=== PATIENT | female | born 1980 | race Caucasian/White ===

== ENCOUNTER 2016-09-13 04:21 | Emergency (ER) | payer OTHER | END 2016-09-13 06:05 | disposition left against medical advice (07) | LOC: M ED 04:21 | DX: Z53.29 Procedure and treatment not carried out because of patient's decision for other reasons (principal) ==

== ENCOUNTER → 2017-01-06 | Outpatient (REF) | payer OTHER ==
[2017-01-06 16:09] LABS: BASO % 0.3 % (0.0-1.0); EOS % 0.9 % (0.0-3.0); LARGE UNSTAINED CELL # 0.1 K/mm3 (0.0-0.4); LARGE UNSTAINED CELL % 1.3 % (0.0-4.0); LYMPH # 1.8 K/mm3 (1.5-4.5); MEAN CORPUSCULAR HEMOGLOBIN 30.8 pg (27.0-33.0); MEAN CORPUSCULAR HGB CONC 33.1 g/dl (32.0-36.5); MONO # 0.3 K/mm3 (0.0-0.8); MONO % 5.6 % (0.0-5.0); NEUTROPHILS # 3.4 K/mm3 (1.8-7.7); NEUTROPHILS % 60.9 % (36.0-66.0); PLATELET COUNT, AUTOMATED 307 k/mm3 (150-450); RED CELL DISTRIBUTION WIDTH 12.9 % (11.5-14.5); WHITE BLOOD COUNT 5.6 K/mm3 (4.0-10.0)
[2017-01-06 16:28] LABS: ALBUMIN 3.8 GM/DL (3.2-5.2); ALBUMIN/GLOBULIN RATIO 0.97 (1.00-1.93); ALKALINE PHOSPHATASE 59 U/L (45-117); ALT/SGPT 23 U/L (12-78); ANION GAP 7 MEQ/L (8-16); AST/SGOT 13 U/L (15-37); BILIRUBIN,TOTAL 0.3 MG/DL (0.2-1.0); BLOOD UREA NITROGEN 15 MG/DL (7-18); CALCIUM LEVEL 9.2 MG/DL (8.5-10.1); CARBON DIOXIDE LEVEL 27 MEQ/L (21-32); CHLORIDE LEVEL 105 MEQ/L (98-107); GLOMERULAR FILTRATION RATE > 60.0 (>60); GLUCOSE, FASTING 94 MG/DL (70-105); POTASSIUM SERUM 4.2 MEQ/L (3.5-5.1); SODIUM LEVEL 139 MEQ/L (136-145); TOTAL PROTEIN 7.7 GM/DL (6.4-8.2)
== END ==
LOC: M LABDRAW1 15:42
PROVIDERS: ATTEND Family Medicine
DX: R53.83 Other fatigue (principal)

== ENCOUNTER → 2017-01-08 | Outpatient (CLI) | payer OTHER ==
--- NOTE | 2017-01-09 02:52 | REP ---
Clinical: Acute abdominal pain. Technique: Strickland scale ultrasound using curved array transducer. Findings: The liver, spleen, and pancreas are normal in contour, size, and echogenicity without focal hepatic, splenic or pancreatic lesions identified. The gallbladder is normal without gallstones, wall thickening or pericholecystic fluid. No biliary ductal dilatation is appreciated, and the common bile duct measures 3.9 mm diameter. The bilateral kidneys are normal in reniform shape without hydronephrosis, cystic or renal mass lesion. Right kidney measures 11.9 x 5.0 x 4.0 cm and a 4 mm nonobstructing calculus cannot be excluded. Left kidney measures 11.8 x 4.7 x 4.4 cm and a 6 mm nonobstructing calculus cannot be excluded. No ascites. Visualized portions of the abdominal aorta normal. Impression: Essentially normal complete abdominal ultrasound. Small nonobstructing renal calculi cannot be excluded. Signed by Hussein Goff MD 01/09/2017 02:45 A
== END ==
LOC: M WHC 09:11
PROVIDERS: ATTEND Family Medicine
DX: R10.84 Generalized abdominal pain (principal)

== ENCOUNTER → 2017-02-12 | Outpatient (CLI) | payer OTHER ==
[~2017-02-12] VITALS: Ht 175.3 cm; Wt 81.6 kg
[~2017-02-12] MED LIST: LIDOCAINE 2% INJ 100 MG/5 ML SDV (FOR ANES.) As Ordered ONE; NS 1,000 ML IV SCH; PROPOFOL 200 MG/20 ML VIAL As Ordered ONE; fentaNYL 100 MCG/2 ML INJECTION (J3010) As Ordered ONE
--- NOTE | 2017-02-12 13:22 | ROOR ---
Patient Name: Enedina Castillo Procedure Date: 02/12/2017 1:01 PM Date of : 1980 Age: 37 Room: [facility] Gender: Female Note Status: Finalized Procedure: Upper GI endoscopy Indications: Generalized abdominal pain Providers: Christopher Blake Jr, MD Referring MD: Turner Marie MD Requesting Provider: Medicines: Propofol per Anesthesia Complications: No immediate complications. Procedure: Pre-Anesthesia Assessment: - Prior to the procedure, a History and Physical was performed, and patient medications and allergies were reviewed. The patient is competent. The risks and benefits of the procedure and the sedation options and risks were discussed with the patient. All questions were answered and informed consent was obtained. Patient identification and proposed procedure were verified by the physician and the nurse in the pre-procedure area and in the procedure room. Mental Status Examination: alert and oriented. Airway Examination: normal oropharyngeal airway and neck mobility. Respiratory Examination: clear to auscultation. CV Examination: normal. ASA Grade Assessment: II - A patient with mild systemic disease. After reviewing the risks and benefits, the patient was deemed in satisfactory condition to undergo the procedure. The anesthesia plan was to use moderate sedation / analgesia (conscious sedation). Immediately prior to administration of medications, the patient was re-assessed for adequacy to receive sedatives. The heart rate, respiratory rate, oxygen saturations, blood pressure, adequacy of pulmonary ventilation, and response to care were monitored throughout the procedure. The physical status of the patient was re-assessed after the procedure. The Endoscope was introduced through the mouth, and advanced to the second part of duodenum. The upper GI endoscopy was accomplished without difficulty. The patient tolerated the procedure well. Findings: The upper third of the esophagus, middle third of the esophagus and lower third of the esophagus were normal. Peridot-colored mucosa 1 island of tissue was present. Mucosa was biopsied with a cold forceps for histology. One specimen bottle was sent to pathology. The gastroesophageal junction, cardia, gastric fundus and gastric body were normal. Diffuse mildly erythematous mucosa without bleeding was found in the gastric antrum. Biopsies were taken with a cold forceps for histology. The duodenal bulb, first portion of the duodenum and second portion of the duodenum were normal. Impression: - Normal upper third of esophagus, middle third of esophagus and lower third of esophagus. - Peridot-colored mucosa consistent with Barnard's esophagus. Biopsied. - Normal gastroesophageal junction, cardia, gastric fundus and gastric body. - Erythematous mucosa in the antrum. Biopsied. - Normal duodenal bulb, first portion of the duodenum and second portion of the duodenum. Recommendation: - Discharge patient to home (ambulatory). - Return to my office in 2 weeks. Christopher Blake MD Christopher Blake Jr, MD 02/12/2017 1:21:36 PM This report has been signed electronically. Number of Addenda: 0 Note Initiated On: 02/12/2017 1:01 PM Estimated Blood Loss: Estimated blood loss: none.
--- NOTE | 2017-02-12 13:35 | ROOR ---
Patient Name: Enedina Castillo Procedure Date: 02/12/2017 1:01 PM Date of : 1980 Age: 37 Room: [facility] Gender: Female Note Status: Finalized Procedure: Colonoscopy Indications: Generalized abdominal pain Providers: Christopher Blake Jr, MD Referring MD: Turner Marie MD Requesting Provider: Medicines: Propofol per Anesthesia Complications: No immediate complications. Procedure: Pre-Anesthesia Assessment: - Prior to the procedure, a History and Physical was performed, and patient medications and allergies were reviewed. The patient is competent. The risks and benefits of the procedure and the sedation options and risks were discussed with the patient. All questions were answered and informed consent was obtained. Patient identification and proposed procedure were verified by the physician and the nurse in the pre-procedure area and in the procedure room. Mental Status Examination: alert and oriented. Airway Examination: normal oropharyngeal airway and neck mobility. Respiratory Examination: clear to auscultation. CV Examination: normal. ASA Grade Assessment: II - A patient with mild systemic disease. After reviewing the risks and benefits, the patient was deemed in satisfactory condition to undergo the procedure. The anesthesia plan was to use moderate sedation / analgesia (conscious sedation). Immediately prior to administration of medications, the patient was re-assessed for adequacy to receive sedatives. The heart rate, respiratory rate, oxygen saturations, blood pressure, adequacy of pulmonary ventilation, and response to care were monitored throughout the procedure. The physical status of the patient was re-assessed after the procedure. The Colonoscope was introduced through the anus and advanced to the cecum, identified by appendiceal orifice and ileocecal valve. The colonoscopy was performed without difficulty. The patient tolerated the procedure well. The quality of the bowel preparation was adequate and good. Findings: The perianal and digital rectal examinations were normal. Pertinent negatives include normal sphincter tone, no palpable rectal lesions and no anal lesion or abnormality was detected. Multiple small and large-mouthed diverticula were found in the sigmoid colon. The rectum, recto-sigmoid colon, descending colon, transverse colon, ascending colon, cecum, appendiceal orifice and ileocecal valve appeared normal. Impression: - Diverticulosis in the sigmoid colon. - The rectum, recto-sigmoid colon, descending colon, transverse colon, ascending colon, cecum, appendiceal orifice and ileocecal valve are normal. - No specimens collected. Recommendation: - Discharge patient to home (ambulatory). - Return to my office in 2 weeks. Christopher Blake MD Christopher Blake Jr, MD 02/12/2017 1:34:57 PM This report has been signed electronically. Number of Addenda: 0 Note Initiated On: 02/12/2017 1:01 PM Estimated Blood Loss: Estimated blood loss: none.
[2017-02-12 13:55] VITALS: BP 127/79
== END ==
LOC: M OPP 12:02
PROVIDERS: ATTEND Surgery
DX: R10.84 Generalized abdominal pain (principal); K57.30 Diverticulosis of large intestine without perforation or abscess without bleeding; K22.8 Other specified diseases of esophagus; K31.89 Other diseases of stomach and duodenum; K21.9 Gastro-esophageal reflux disease without esophagitis; R10.12 Left upper quadrant pain; Z79.899 Other long term (current) drug therapy
CPT/HCPCS: 43239; 45378; 88305; J3010

== ENCOUNTER → 2017-07-04 | Outpatient (REF) | payer OTHER | LOC: M LAB REF 10:35 | PROVIDERS: ATTEND Physician Assistant | DX: J02.9 Acute pharyngitis, unspecified (principal) ==

== ENCOUNTER → 2020-07-16 | Outpatient (CLI) | payer SELFPAY | LOC: M LABSMTC 11:25 | PROVIDERS: ATTEND Pediatrics | DX: Z20.828 Contact with and (suspected) exposure to other viral communicable diseases (principal) ==

== ENCOUNTER → 2020-12-18 | Outpatient (REF) | payer OTHER ==
[2020-12-18 18:07] LABS: HEMATOCRIT 40.4 % (36.0-47.0); HEMOGLOBIN 13.2 g/dl (12.0-15.5); MEAN CORPUSCULAR HEMOGLOBIN 29.7 pg (27.0-33.0); MEAN CORPUSCULAR HGB CONC 32.7 g/dl (32.0-36.5); MEAN CORPUSCULAR VOLUME 90.8 fl (80.0-96.0); PLATELET COUNT, AUTOMATED 290 10^3/uL (150-450); RED BLOOD COUNT 4.45 10^6/uL (4.00-5.40); WHITE BLOOD COUNT 4.9 10^3/uL (4.0-10.0)
== END ==
LOC: M PLALAB 14:15
PROVIDERS: ATTEND Advanced Practice Midwife
DX: N92.4 Excessive bleeding in the premenopausal period (principal)

== ENCOUNTER → 2021-01-10 | Outpatient (CLI) | payer OTHER ==
--- NOTE | 2021-01-10 08:56 | REP ---
INDICATION: N92.4 MENORRHAGIA COMPARISON: 08/11/2013 TECHNIQUE: Transabdominal pelvic ultrasound followed by transvaginal examination for better evaluation of the endometrium and adnexa with color Doppler evaluation of the ovaries. FINDINGS: Bladder is unremarkable and measures 9.7 x 5.4 x 4.2 cm. Normal anteverted uterus measures 8.5 x 7.1 x 5.0 cm. The endometrial complex measures 15 mm thickness. No discrete uterine or endometrial abnormalities are appreciated. Bilateral ovaries are normal in appearance and vascularity without evidence for torsion. Right ovary measures 2.7 x 2.0 x 1.9 cm; R I = 0.62. Left ovary measures 4.2 x 2.5 x 4.0 cm with suspected 1.9 cm physiologic cyst/dominant follicle; R I = 0.56. No pelvic fluid or adnexal mass lesion. IMPRESSION: Thickened endometrial complex may be secondary to menstrual cycle. No obvious focal abnormalities appreciated. <Electronically signed by Hussein Goff > 01/10/21 0838
--- NOTE | 2021-01-10 10:42 | REPMRS ---
Patient History The patient states she had a clinical breast exam in 12/2020. Family history of breast cancer at age 60 in maternal grandmother. No Hormone Replacement Therapy Patient states no breast complaints today. Patient has signed MRS History Sheet. Baseline mammogram. Digital Woman Screen Mammo: January 10, 2021 - Exam #: [id number] Bilateral CC and MLO view(s) were taken. Technologist: Feli Dale, Technologist FINDINGS: The breast tissue is heterogeneously dense. This may lower the sensitivity of mammography. Screening. Digital screening (2D) mammography was performed bilaterally. Additionally, breast tomosynthesis (3D) mammography was perfomed bilaterally in the CC and MLO projections. Today's examination is the initial screening examination. By history, the patient has no complaints of a palpable breast abnormality or other significant breast complaints. The breasts are symmetric in size and shape. Dense heterogenous fibroglandular elements are seen bilaterally to such a degree that the sensitivity of the mammogram in detecting cancer is decreased. There are no masses. There is no internal architectural distortion. There are no suspicious microcalcific clusters. Skin thickening or nipple retraction is not present. IMPRESSION: BI-RADS Category 2- Benign Findings. There is no evidence of malignant alteration of the breasts. Followup examination recommended in one year. The Volpara volumetric breast density category is C, the breasts are heterogenously dense which may obscure small masses. This mammogram was read with the assistance of Carousell,an FDA approved computer aided detection system for mammography. The lifetime Tyrer-Cuzick score is 17.7 % Negative x-ray reports should not delay surgical consultation if a dominant or clinically suspicious mass is present. Not all breast cancers can be identified by mammography. Therefore, we recommend that you continue to perform regular breast self-examination and physical examination and then promptly contact your physician of any concerns or changes. Adenosis and dense breasts may obscure an underlying neoplasm. Assessment: BI-RADS/ACR category 2 mammogram. Benign Findings. Recommendation Routine screening mammogram of both breasts in 1 year. Electronically Signed By: Eleno Bolden DO 01/10/21 [id number]
== END ==
LOC: M WHC 07:59
PROVIDERS: ATTEND Advanced Practice Midwife
DX: Z12.31 Encounter for screening mammogram for malignant neoplasm of breast (principal); N92.4 Excessive bleeding in the premenopausal period

== ENCOUNTER → 2021-01-21 | Outpatient (REF) | payer OTHER | LOC: M PLALAB 12:00 | PROVIDERS: ATTEND Advanced Practice Midwife | DX: N92.0 Excessive and frequent menstruation with regular cycle (principal) ==

== ENCOUNTER → 2021-04-10 | Outpatient (CLI) | payer OTHER | LOC: M LABSMTC 10:21 | PROVIDERS: ATTEND Pediatrics | DX: Z11.52 Encounter for screening for COVID-19 (principal) ==

== ENCOUNTER → 2021-04-12 | Outpatient (REF) | payer OTHER | LOC: M LAB REF 10:13 | PROVIDERS: ATTEND Physician Assistant Medical | DX: E50.9 Vitamin A deficiency, unspecified (principal); J02.9 Acute pharyngitis, unspecified ==

== ENCOUNTER → 2021-05-02 | Outpatient (CLI) | payer OTHER ==
--- NOTE | 2021-05-02 11:27 | REP ---
INDICATION: COUGH COMPARISON: None. TECHNIQUE: PA/Lateral FINDINGS: Lungs: Clear, no infiltrate. Heart: Normal in size. Mediastinum: Mediastinal silhouette unremarkable. Pleural angles: Unremarkable.. Bones and soft tissues: Unremarkable. IMPRESSION: No acute pulmonary disease. <Electronically signed by Raúl Strickland > 05/02/21 1120
[2021-05-02 16:44] LABS: BASO % 0.6 % (0.0-1.0); EOS # 0.1 10^3/uL (0.0-0.5); HEMATOCRIT 40.5 % (36.0-47.0); HEMOGLOBIN 13.4 g/dl (12.0-15.5); LYMPH # 1.4 10^3/uL (1.5-5.0); LYMPH % 28.6 % (24.0-44.0); MEAN CORPUSCULAR HEMOGLOBIN 29.6 pg (27.0-33.0); MEAN CORPUSCULAR HGB CONC 33.1 g/dl (32.0-36.5); MEAN CORPUSCULAR VOLUME 89.6 fl (80.0-96.0); MONO # 0.4 10^3/uL (0.0-0.8); MONO % 8.7 % (2.0-8.0); NEUTROPHILS # 2.9 10^3/uL (1.5-8.5); NEUTROPHILS % 60.7 % (36.0-66.0); PLATELET COUNT, AUTOMATED 343 10^3/uL (150-450); RED BLOOD COUNT 4.52 10^6/uL (4.00-5.40); WHITE BLOOD COUNT 4.8 10^3/uL (4.0-10.0)
[2021-05-02 17:10] LABS: ALBUMIN 4.2 GM/DL (3.2-5.2); ALT/SGPT 15 U/L (12-78); BILIRUBIN,TOTAL 0.7 MG/DL (0.2-1.0); BLOOD UREA NITROGEN 16 MG/DL (7-18); CALCIUM LEVEL 9.7 MG/DL (8.5-10.1); CARBON DIOXIDE LEVEL 27 MEQ/L (21-32); CHLORIDE LEVEL 104 MEQ/L (98-107); CREATININE FOR GFR 0.67 MG/DL (0.55-1.30); GLOMERULAR FILTRATION RATE > 60.0 (>58); GLUCOSE, FASTING 77 MG/DL (70-100); SODIUM LEVEL 139 MEQ/L (136-145); TOTAL PROTEIN 8.1 GM/DL (6.4-8.2)
== END ==
LOC: M WUC 10:42
PROVIDERS: ATTEND Family Medicine
DX: R53.81 Other malaise (principal); R05 Cough

== ENCOUNTER → 2021-05-27 | Outpatient (CLI) | payer OTHER | LOC: M LABSMTC 08:46 | PROVIDERS: ATTEND Anesthesiology | DX: Z01.818 Encounter for other preprocedural examination (principal); Z11.52 Encounter for screening for COVID-19 ==

== ENCOUNTER 2021-05-31 06:10 | Day surgery (SDC) | payer OTHER ==
[~2021-05-31] VITALS: Ht 175.3 cm; Wt 73.0 kg
[~2021-05-31 06:10] MED LIST changes: -LIDOCAINE 2% INJ 100 MG/5 ML SDV (FOR ANES.) As Ordered ONE; +LR 1,000 ML IV ONE; -NS 1,000 ML IV SCH; -PROPOFOL 200 MG/20 ML VIAL As Ordered ONE; +ceFAZolin SOD 2 GM in IV 1 EA IV ONE; -fentaNYL 100 MCG/2 ML INJECTION (J3010) As Ordered ONE
--- OUTSIDE RECORDS SUMMARY | 2021-05-31 06:14 | CCD ---
Author Author [email or web address] [facility] Organization [email or web address] [facility] Address Unknown Phone Unavailable Care Team Providers Care Mcat Tutor Name Role Phone Caitlin Leblanc Unavailable PROBLEMS No Information ALLERGIES No Known Allergies ENCOUNTERS from 1980 to 2021-05-30 Encounter Location Date Provider Diagnosis [facility] [address] [place] [address] [place] [address] May, Caitlin Leblanc IMMUNIZATIONS No Information SOCIAL HISTORY Tobacco Use: Social History Observation Description Date Details (start date - stop date) Never Smoker Sex Assigned At : Social History Observation Description Sex Assigned At Unknown Alcohol Screening: Question Answer Notes Did you have a drink containing alcohol in the past year? No Points 0 Interpretation Negative Tobacco Use: Question Answer Notes Are you a: never smoker REASON FOR REFERRAL No Information VITAL SIGNS No information MEDICATIONS Medication SIG (Take, Route, Frequency, Duration) Notes Start Da te End Date Status Effexor XR 37.5 MG 1 capsule with food Orally Once a day Not-Taking Ibuprofen 800 MG 1 tablet with food or milk as needed Ora lly Three times a day Active Percocet 5-325 MG 1 tablet as needed Orally every 6 hrs for 5 May, Active Pyridium 200 MG 1 tablet after meals Orally Three times a day. Day before surgery Active miSOPROStol 200 MCG 2 tabs Orally one time, 3 ho urs prior to procedure for 30 day(s) December, Not-Taking PROCEDURES No Information RESULTS No Results REASON FOR VISIT Pre-op meds MEDICAL (GENERAL) HISTORY Type Description Date Medical History GERD Surgical History Endoscopy/Colonoscopy Hospitalization History Childbirth Goals Section No Information Health Concerns No Information MEDICAL EQUIPMENT No Information MENTAL STATUS No Information FUNCTIONAL STATUS No Information ASSESSMENTS No Information PLAN OF TREATMENT Medication Medication Name Sig Start Date Stop Date Percocet 5-325 MG 1 tablet as needed Orally every 6 hrs for 5 May, Pyridium 200 MG 1 tablet after meals Orally Three times a day. Day before surgery Ibuprofen 800 MG 1 tablet with food or milk as needed Ora lly Three times a day Next Appt Details Provider Name:Caitlin Crawford Benji, 2021-05-31 0 7:30:00 AM, [address] [place] [address], , [place], [address], Provider Name:Caitlin Yvette Benji 2021-06-11 0 1:20:00 PM, [address] [place] [address], , [place], [address], Provider Name:Caitlin Yvette Benji 2021-07-09 0 8:20:00 AM, [address] [place] [address], , [place], [address], Insurance Providers Payer Name Payer Address Payer Phone Insured Name Patient Relati onship to Insured Coverage Start Date Coverage End Date [facility] [address] [address] [facility] [id number] Bruno Castillo
--- OUTSIDE RECORDS SUMMARY | 2021-05-31 06:14 | CCD ---
Author Author [facility] Organization [facility] Address Unknown Phone Unavailable Support Name Relationship Address Phone CONY Next Of Kin [address] [place] [address] AIDAN Next Of Kin [address] [place] [address] VIVIAN OCAMPO Next Of Kin [address] [place] [address] [facility] Next Of Kin [address] [place] [address] MATTHEW CASEY Next Of Kin [address] [place] [address] AMNA GARCIA Next Of Kin [address] [place] [address] VIVIAN OCAMPO ECON [address] [place] [address] Unavailable Re-disclosure Warning The records that you are about to access may contain information from federally-assisted alcohol or drug abuse programs. If such information is present, then the following federally mandated warning applies: This information has been disclosed to you from records protected by federal confidentiality rules (42 CFR part 2). The federal rules prohibit you from making any further disclosure of this information unless further disclosure is expressly permitted by the written consent of the person to whom it pertains or as otherwise permitted by 42 CFR part 2. A general authorization for the release of medical or other information is NOT sufficient for this purpose. The Federal rules restrict any use of the information to criminally investigate or prosecute any alcohol or drug abuse patient.The records that you are about to access may contain highly sensitive health information, the redisclosure of which is protected by Article 27-F of the [facility] Public Health law. If you continue you may have access to information: Regarding HIV / AIDS; Provided by facilities licensed or operated by the [facility] Office of Mental Health; or Provided by the [facility] Office for People With Developmental Disabilities. If such information is present, then the following [facility] mandated warning applies: This information has been disclosed to you from confidential records which are protected by state law. State law prohibits you from making any further disclosure of this information without the specific written consent of the person to whom it pertains, or as otherwise permitted by law. Any unauthorized further disclosure in violation of state law may result in a fine or group home sentence or both. A general authorization for the release of medical or other information is NOT sufficient authorization for further disc losure. Family History Family Member Name Family Member Gender Family Member Status Date o f Status Description Data Source(s) Unknown Unknown Problem MEDENT ([facility], ) Unknown Unknown Problem MEDENT ([facility], ) Unknown Unknown Problem [facility] ([facility] Encounters Encounter Providers Location Date Indications Data Source(s ) Unknown [address] [facility] [place] [id number] 05/28/2021 12:00:00 AM EDT eCW1 ([facility]) Unknown [address] [facility] [address] [address] 02/22/2021 12:00:00 AM EDT eCW1 ([facility]) Unknown [address] [facility] [address] [address] 02/18/2021 12:00:00 AM EDT eCW1 ([facility]) Outpatient [address] [facility] [address] [address] 02/15/2021 12:00:00 AM EDT eCW1 ([facility]) Unknown [address] [facility] [address] [address] 02/01/2021 12:00:00 AM EDT eCW1 ([facility]) Unknown [address] [facility] [address] [address] 01/22/2021 12:00:00 AM EDT eCW1 ([facility]) Outpatient [address] [facility] [address] [address] 12/18/2020 12:00:00 AM EDT eCW1 ([facility]) Immunizations Vaccine Date Status Description Data Source(s) COVID-19 VACCINE [facility] 10/31/2020 12:00:00 AM EDT [facility]: YESThis Data wa s Submitted to [facility] Via [employer] COVID-19 VACCINE [facility] 10/10/2020 12:00:00 AM EST completed [facility] Vaccine Series Complete: NOThis Data was Submitted to [facility] Via [employer] Medications Medication Brand Name Start Date Product Form Dose Route Admi nistrative Instructions Pharmacy Instructions Status Indications Reaction Description Data Source(s) 800 mg 05/29/2021 12:00:00 AM EDT tablet 30 TAKE ONE TABLET BY MOUTH THREE TIMES A DAY WITH FOOD OR MILK NEEDED TAKE ONE TABLET BY MOUTH THREE TIMES A DAY WITH FOOD OR MILK NEEDED SOLD: 05/29/2021 [facility] 5-325 mg 05/29/2021 12:00:00 AM EDT tablet 20 TAKE ONE TABLET BY MOUTH EVERY 6 HOURS NEEDED MAXIMUM DAILY DOSE = 4 TAKE ONE TABLET BY MOUTH EVERY 6 HOURS NEEDED MAXIMUM DAILY DOSE = 4 SOLD: 05/29/2021 [facility] Acetaminophen 325 MG / Oxycodone Hydroch loride 5 MG Oral Tablet [Percocet] Percocet 5-325 MG Percocet 5-325 MG 05/29/2021 12:00:00 AM EDT 1 .0 {tablet_as_needed} active Percocet 5-32 5 MG eCW1 ([facility]) 200 mg 05/29/2021 12:00:00 AM EDT tablet 3 TAKE ONE TABLET BY MOUTH THREE TIMES A DAY BEFORE SURGERY TAKE ONE TABLET BY MOUTH THREE TIMES A D AY BEFORE SURGERY SOLD: 05/29/2021 [facility] Amoxicillin 875 MG / Clavulanate 125 MG Oral Tablet 87 5-125 mg AMOXICILLIN/POTASSIUM CLAV 05/02/2021 12:00:00 AM EDT tablet 14 TAKE ONE TABLET BY MOUTH EVERY 12 HOURS FOR 7 DAYS TAKE ONE TABLET BY MOUTH EVERY 12 HOURS FOR 7 DAYS SOLD: 05/02/2021 [facility] 20 mg 05/02/2021 12:00:00 AM EDT tablet 10 TAKE ONE TABLET BY MOUTH TWICE A DAY FOR 5 DAYS TAKE ONE TABLET BY MOUTH TWICE A DAY FOR 5 DAYS SOLD: 2020 [facility] Misoprostol 0.2 MG Oral Tablet 200 mcg MISOPROSTOL 12:00:00 AM EDT tablet 2 TAKE TWO TABLETS BY MOUTH 3 HOUR S PRIOR TO PROCEDURE TAKE TWO TABLETS BY MOUTH 3 HOURS PRIOR TO PROCEDURE SOLD: 12/31/2020 [facility] Misoprostol 0.2 MG Oral Tablet miSOPROStol 200 MCG miSOPROSt ol 200 MCG 12/18/2020 12:00:00 AM EDT suspended miSOPROStol 200 MCG eCW1 ([facility]) Misoprostol 0.2 MG Oral Tablet miSOPROStol 200 MCG miSOPROSt ol 200 MCG 12/18/2020 12:00:00 AM EDT active miSOPROStol 200 MCG eCW1 ([facility]) Misoprostol 0.2 MG Oral Tablet miSOPROStol 200 MCG miSOPROSt ol 200 MCG 12/18/2020 12:00:00 AM EDT suspended miSOPROStol 200 MCG eCW1 ([facility]) Misoprostol 0.2 MG Oral Tablet miSOPROStol 200 MCG miSOPROSt ol 200 MCG 12/18/2020 12:00:00 AM EDT active miSOPROStol 200 MCG eCW1 ([facility]) Misoprostol 0.2 MG Oral Tablet Misoprostol 200 MCG Misoprost ol 200 MCG 12/18/2020 12:00:00 AM EDT active Misoprostol 200 MCG eCW1 ([facility]) Misoprostol 0.2 MG Oral Tablet miSOPROStol 200 MCG miSOPROSt ol 200 MCG 12/18/2020 12:00:00 AM EDT suspended miSOPROStol 200 MCG eCW1 ([facility]) Misoprostol 0.2 MG Oral Tablet miSOPROStol 200 MCG miSOPROSt ol 200 MCG 12/18/2020 12:00:00 AM EDT suspended miSOPROStol 200 MCG eCW1 ([facility]) Insurance Providers Payer name Policy type / Coverage type Policy ID Covered libertarian ID Covered libertarian's relationship to pittman Policy [place] Plan Information [employer] [id number] [employer] [id number] [facility] [id number] [facility] [id number] [facility] [id number] [employer] [id number] Self [id number] [employer] (HMO) [id number] Self [employer] [id number] Self [employer] PPO O [id number] S [id number] R [facility] [id number] CO2 [id number] SELF PAY ONLY [id number] SP [id number] [employer] [id number] Self [id number] Problems, Conditions, and Diagnoses No Information Surgeries/Procedures No Information Results ID Date Data Source [id number] 04/12/2021 12:00:00 AM EDT [facility] Name Value Range Interpretation Code Description Data Lacie rce(s) Supporting Document(s) Respiratory pathogens identified [Type] in Nasopharynx by Probe and target amplification method SARS-CoV-2 (COVID 19) [facility] This lab was ordered by [facility] a nd reported by [facility]. ID Date Data Source [id number] 04/10/2021 10:30:00 AM EDT [facility] Name Value Range Interpretation Code Description Data Lacie rce(s) Supporting Document(s) SARS-CoV-2 (COVID-19) RNA [Presence] in Respiratory specimen by WENCESLAO with probe detection Not Detected [facility] This lab was ordered by [facility] and reported by [facility] ID Date Data Source [id number] 04/09/2021 12:00:00 AM EDT [facility] Name Value Range Interpretation Code Description Data Lacie rce(s) Supporting Document(s) SARS-CoV2 Rapid Antigen Negative [facility] by [facility]. ID Date Data Source [id number] 07/16/2020 12:00:00 AM EST [facility] Name Value Range Interpretation Code Description Data Lacie rce(s) Supporting Document(s) 2019-nCoV RNA XXX WENCESLAO+probe-Imp [facility] This lab was ordered by [facility] and reported by [facility]. Procedure Social History Code Duration Value Status Description Data Source(s ) Smoking 05/13/2021 12:00:00 AM EDT Never Smoker completed Never S moker eCW1 ([facility]) Smoking 02/15/2021 12:00:00 AM EDT Never Smoker completed Never S moker eCW1 ([facility]) Smoking 02/15/2021 12:00:00 AM EDT Never Smoker completed Never S moker eCW1 ([facility]) Smoking 02/15/2021 12:00:00 AM EDT Never Smoker completed Never S moker eCW1 ([facility]) Smoking 01/21/2021 12:00:00 AM EDT Never Smoker completed Never S moker eCW1 ([facility]) Smoking 01/21/2021 12:00:00 AM EDT Never Smoker completed Never S moker eCW1 ([facility]) Smoking 12/18/2020 12:00:00 AM EDT Never Smoker completed Never S moker eCW1 ([facility]) Vital Signs ID Date Data Source UNK Name Value Range Interpretation Code Description Data Source(s) Body weight 169.3 [lb_av] 169.3 [lb_av] eCW1 ([facility]) Body height 68.5 [in_i] 68.5 [in_i] W1 ([facility]) Body mass index (BMI) [Ratio] 25.36 kg/m2 25.36 kg/m2 W1 ([facility]) Systolic blood pressure 122 mm[Hg] 122 mm[Hg] e CW1 ([facility]) Diastolic blood pressure 60 mm[Hg] 60 mm[Hg] eCW1 ([facility]) Body weight 166.0 [lb_av] 166.0 [lb_av] eCW1 ([facility]) Body weight 75.3 kg 75.3 kg W1 ([facility]) Body height 68.5 [in_i] 68.5 [in_i] W1 ([facility]) Body mass index (BMI) [Ratio] 24.87 kg/m2 24.87 kg/m2 eCW1 ([facility]) Systolic blood pressure 126 mm[Hg] 126 mm[Hg] e CW1 ([facility]) Diastolic blood pressure 76 mm[Hg] 76 mm[Hg] eCW1 ([facility]) Patient Treatment Plan of Care Planned Activity Planned Date Details Description Data Source (s) Acetaminophen 325 MG / Oxycodone Hydrochloride 5 MG Or al Tablet [Percocet] 05/29/2021 12:00:00 AM EDT eCW1 ([facility]) Misoprostol 0.2 MG Oral Tablet 12/18/2020 12:00:00 AM EDT eCW1 ([facility])
--- OUTSIDE RECORDS SUMMARY | 2021-05-31 06:14 | CCD ---
Author Author [facility] Organization [facility] Address Unknown Phone Unavailable Care Team Providers Care Arc Trimmer Name Role Phone Caitlin Leblanc Unavailable PROBLEMS No Information ALLERGIES No Known Allergies ENCOUNTERS from 1980 to 2021-03-09 Encounter Location Date Provider Diagnosis [facility] [address] [place] [address] [place] [address] Feb, Caitlin Leblanc Menorrhagia N92.0 IMMUNIZATIONS No Information SOCIAL HISTORY Tobacco Use: [...] REASON FOR REFERRAL No Information VITAL SIGNS Weight 169.3 lbs Feb, Height 68.5 in Feb, BMI 25.36 kg/m2 Feb, Blood pressure systolic 122 mm Hg Feb, Blood pressure diastolic 60 mm Hg Feb, MEDICATIONS Medication SIG (Take, Route, Frequency, Duration) Notes Start Da te End Date Status Effexor XR 37.5 MG 1 capsule with food Orally Once a day Not-Taking miSOPROStol 200 MCG 2 tabs Orally one time, 3 ho urs prior to procedure for 30 day(s) December, Not-Taking PROCEDURES No Information RESULTS No Results REASON FOR VISIT surgical consult for ablation per angi & PRE OP SURG 03/06/21 MEDICAL (GENERAL) HISTORY Type Description Date Medical History GERD Surgical History Endoscopy/Colonoscopy 2015/2016 Hospitalization History Childbirth Goals Section No Information Health Concerns No Information MEDICAL EQUIPMENT No Information MENTAL STATUS No Information FUNCTIONAL STATUS No Information ASSESSMENTS Encounter Date Diagnosis Assessment Notes Treatment Notes Treatm ent Clinical Notes Feb, Menorrhagia (ICD-10 - N92.0) I discussed treatment options to include endometrial ablation medical management with continuous progestin versus combination control versus hysterectomy patient discussed risk and benefits of all. All questions have been answered and patient will discuss with her family and decide on management.Approximately 50% spent counseling patient at this appointment PLAN OF TREATMENT Treatment Notes Assessment Notes Clinical Notes Menorrhagia I discussed treatmen t options to include endometrial ablation medical management with continuous progestin versus combination control versus hysterectomy patient discussed risk and benefits of all. All questions have been answered and patient will discuss with her family and decide on management.Approximately 50% spent counseling patient at this appointment Next Appt Details Provider Name:Caitlin Leblanc, 2021-05-13 0 1:00:00 PM, [address] [place] [address], , [place], [address], Provider Name:Caitlin Leblanc 2021-05-31 0 7:30:00 AM, [address] [place] [address], , [place], [address], Provider Name:Caitlin Leblanc 2021-06-11 0 1:20:00 PM, [address] [place] [address], , [place], [address], Provider Name:Caitlin Leblanc 2021-07-09 0 8:20:00 AM, [address] [place] [address], , [place], [address], Insurance Providers Payer Name Payer Address Payer Phone Insured Name Patient Relati onship to Insured Coverage Start Date Coverage End Date [facility] [address] [address] [facility] [phone] Bruno Castillo
--- OUTSIDE RECORDS SUMMARY | 2021-05-31 06:14 | CCD | Continuity of Care Document ---
Author Author Enedina OLMEDO Organization Unknown Address [address] [place] [address] Phone [phone] Care Team Providers Care Fuel Cell Systems Engineer Name Role Phone Turner Marie MD [facility] [phone] Problems Description No Information Available Social History Type Date Description Comments Sex Unknown Tobacco Use Start: Unknown Never Smoked Cigarettes ETOH Use Denies alcohol use Tobacco Use Start: Unknown Patient has never smoked Exercise Type/Frequency Exercises regularly Allergies, Adverse Reactions, Alerts Description No Known Drug Allergies Medications Description No Active Medications Immunizations Description No Information Available Vital Signs Date Vital Result Comment 07/19/2019 1:27pm BP Systolic 113 mmHg BP Diastolic 77 mmHg Heart Rate 66 /min Respiratory Rate 16 /min O2 % BldC Oximetry 99 % Body Temperature 98.3 F Weight 157.00 lb Height 68 inches 5'8" BMI (Body Mass Index) 23.9 kg/m2 Pain Level 3 10/22/2018 2:44pm BP Systolic 109 mmHg BP Diastolic 74 mmHg Heart Rate 79 /min Respiratory Rate 18 /min O2 % BldC Oximetry 98 % Body Temperature 97.2 F Weight 193.00 lb Height 68 inches 5'8" BMI (Body Mass Index) 29.3 kg/m2 Pain Level 0 Results Description No Information Available Procedures Description No Information Available Medical Devices Description No Information Available Encounters Description No Information Available Assessments Date Code Description Provider 04/09/2021 Z20.828 Contact with and (sparks spected) exposure to other viral communicable diseases NOLVIA Black 04/06/2021 Z20.828 Contact with and (sparks spected) exposure to other viral communicable diseases NOLVIA Bhatt Plan of Treatment No Information Available Functional Status Description No Information Available Mental Status Description No Information Available Referrals Description No Information Available
--- OUTSIDE RECORDS SUMMARY | 2021-05-31 06:14 | CCD ---
Continuity of Care Document (CCD) Created on: 04/06/2021 Enedina Castillo External Reference #: [id number] : [id number] Sex: Female Author Author Enedina ROSA Organization Unknown Address [address] [place] [address] Phone [phone] Care Team Providers Care Ethics Instructor Name Role Phone Turner Marie MD [facility] [phone] Problems Description No Information Available Social History [...] Information Available Assessments Date Code Description Provider 04/06/2021 Z20.828 Contact with and (sparks spected) exposure to other viral communicable diseases NOLVIA Bhatt Plan of Treatment No Information Available Functional Status Description No Information Available Mental Status Description No Information Available Referrals Description No Information Available
--- OUTSIDE RECORDS SUMMARY | 2021-05-31 06:14 | CCD ---
Author Author [facility] Organization [facility] Address Unknown Phone Unavailable Care Team Providers Care Predictive Maintenance Technician Name Role Phone BenjiCaitlin Unavailable PROBLEMS No Information ALLERGIES No Known Allergies ENCOUNTERS from 1980 to 2021-03-01 Encounter Location Date Provider Diagnosis [facility] [address] [place] [address] [place] [address] Feb, Caitlin Leblanc IMMUNIZATIONS No Information SOCIAL HISTORY [...] Information RESULTS No Results REASON FOR VISIT pt wants partialhysterectomy MEDICAL (GENERAL) HISTORY Type Description Date Medical History GERD Surgical History Endoscopy/Colonoscopy Hospitalization History Childbirth Goals Section No Information Health Concerns No Information MEDICAL EQUIPMENT No Information MENTAL STATUS No Information FUNCTIONAL STATUS No Information ASSESSMENTS No Information PLAN OF TREATMENT Next Appt Details Provider Name:Caitlin Leblanc, 2021-05-13 0 1:00:00 PM, [address] [facility], , [place], [address], Provider Name:Caitlin Chaudharyn, 2021-05-31 0 7:30:00 AM, [address] [place] [address], , [place], [address], Provider Name:Caitlin Yvette Benji, 2021-06-11 0 1:20:00 PM, [address] [place] [address], , [place], [address], Provider Name:Caitlin Crawford Leblanc, 2021-07-09 0 8:20:00 AM, [address] [place] [address], , [place], [address], Insurance Providers Payer Name Payer Address Payer Phone Insured Name Patient Relati onship to Insured Coverage Start Date Coverage End Date [facility] [address] [facility] [phone] Bruno Castillo
--- OUTSIDE RECORDS SUMMARY | 2021-05-31 06:14 | CCD | Continuity of Care Document ---
Author Author Enedina ROSA Organization Unknown Address [address] [place] [address] [place] [address] Phone [phone] Care Team Providers Care Dowel Inspector Name Role Phone Turner Marie MD [facility] [phone] Problems Description No Information Available Social History [...] Available Encounters Description No Information Available Assessments Description No Information Available Plan of Treatment No Information Available Functional Status Description No Information Available Mental Status Description No Information Available Referrals Description No Information Available
--- OUTSIDE RECORDS SUMMARY | 2021-05-31 06:14 | CCD | Continuity of Care Document ---
Author Author Enedina OLMEDO Organization Unknown Address [address] [place] [address] Phone [phone] Care Team Providers Care Processing Mgr Name Role Phone Turner Marie MD [facility] [phone] Problems Description No Information Available Social History [...]
[2021-05-31] MEDS ORDERED: DESFLURANE 240 ML INHALANT As Ordered ONE (07:07)
[2021-05-31] MEDS ORDERED: BUPIVACAINE HCL 0.25% 30ML VIAL As Ordered ONE (07:13)
[2021-05-31] MEDS ORDERED: ONDANSETRON 4MG/2ML VIAL As Ordered ONE (07:17)
[2021-05-31] MEDS ORDERED: fentaNYL 100 MCG/2 ML INJECTION (J3010) As Ordered ONE ×2 (07:17→09:31)
[2021-05-31] MEDS ORDERED: MIDAZOLAM INJ 2MG/2ML VIAL (J2250 PER 1MG) As Ordered ONE (07:17)
[2021-05-31] MEDS ORDERED: propofoL 200 MG/20 ML VIAL As Ordered ONE ×2 (07:17→08:57)
[2021-05-31] MEDS ORDERED: dexameTHASONE 4 MG/ML 1ML VIAL (J1100 PER 1MG) As Ordered ONE (07:17)
[2021-05-31] MEDS ORDERED: LIDOCAINE 2% 100MG/5ML SDV (FOR ANES.) As Ordered ONE ×2 (07:17→07:18)
[2021-05-31] MEDS ORDERED: ROCURONIUM BROMIDE 50 MG/5 ML VIAL As Ordered ONE (07:17)
[2021-05-31 07:22] LABS: HEMATOCRIT 39.7 % (36.0-47.0); HEMOGLOBIN 13.4 g/dl (12.0-15.5); MEAN CORPUSCULAR HEMOGLOBIN 30.1 pg (27.0-33.0); MEAN CORPUSCULAR HGB CONC 33.8 g/dl (32.0-36.5); MEAN CORPUSCULAR VOLUME 89.2 fl (80.0-96.0); PLATELET COUNT, AUTOMATED 223 10^3/uL (150-450); RED BLOOD COUNT 4.45 10^6/uL (4.00-5.40); WHITE BLOOD COUNT 4.1 10^3/uL (4.0-10.0)
[2021-05-31] MEDS ORDERED: LACRILUBE (AKWA TEARS) OPHTH OINT 3.5 GM As Ordered ONE (07:46)
[2021-05-31] MEDS ORDERED: METOCLOPRAMIDE INJ 10MG/2ML VIAL (J2765 PER 1) As Ordered ONE (09:02)
[2021-05-31] MEDS ORDERED: KETOROLAC 60MG 2ML VIAL As Ordered ONE (09:02)
[2021-05-31] MEDS ORDERED: SUGAMMADEX SODIUM 500 MG/5 ML VIAL (BRIDION) As Ordered ONE (09:02)
[2021-05-31] MEDS ORDERED: ACETAMINOPHEN 1000MG 100ML IV BTL (OFIRMEV) (J0131 PER 10MG) As Ordered ONE (09:03)
[2021-05-31] MEDS: fentaNYL 100 MCG/2 ML INJECTION (J3010) IV PRN ×2 (09:35→09:40)
[2021-05-31] MEDS ORDERED: LR 1,000 ML IV SCH (09:45)
[2021-05-31] MEDS ORDERED: oxyCODONE 5MG TAB PO PRN (09:45)
[2021-05-31] MEDS ORDERED: ONDANSETRON 4MG/2ML VIAL IV PRN (09:45)
[2021-05-31] MEDS ORDERED: PERCOCET 5MG/325MG TAB PO PRN (10:00)
[2021-05-31 10:32] VITALS: BP 98/63
[2021-05-31 11:02] VITALS: BP 93/56
[2021-05-31 12:22] VITALS: BP 91/50
--- NOTE | 2021-05-31 12:24 | ROOPDOC ---
[facility] Report Of Operation Report of Operation DATE OF PROCEDURE: 05/31/21 PREPROCEDURE DIAGNOSES: 1. Abnormal uterine bleeding. POSTPROCEDURE DIAGNOSES: 1. Abnormal uterine bleeding. PROCEDURES PERFORMED: 1. Robotic-assisted laparoscopic hysterectomy. 2. Bilateral salpingectomy. 3. Cystoscopy. SURGEON: Rich Leblanc MD SIMULATION DEVELOPER: MIKEL Anderson ANESTHESIA: General endotracheal anesthesia. ESTIMATED BLOOD LOSS: 50 mL. INTRAVENOUS FLUIDS: 1400 mL lactated Ringer solution. URINE OUTPUT: 200 mL. PREPROCEDURE ANTIBIOTICS: 2g Ancef OPERATIVE FINDINGS: The patient with normal-appearing bilateral adnexa and uterus CYSTOSCOPIC FINDING: Normal bladder mucosa, no foreign objects. Bilateral ureteral jets were observed. SPECIMEN: Uterus, cervix, bilateral fallopian tubes DESCRIPTION OF PROCEDURE: After informed consent was obtained and written consent was reviewed, the patient was brought to the operating room, where general endotracheal anesthesia was obtained. She was then placed in lithotomy position, was prepped and draped in a normal sterile fashion. A time-out in the operating room was then performed, identifying the patient, procedure to be performed, as well as drug allergies. A speculum was then placed, revealing the cervix. The anterior and posterior aspects of the cervix were stitched with a 0 Vicryl. The uterus was then sounded to 9 cm. A extra-large VCare uterine manipulator was then advanced through the cervical os for means to manipulate the uterus. The cervical cap was applied over the cervix, as well as the vaginal sleeve applied into the vagina. The speculum was removed from the patients vagina. A Lewis catheter was then placed and set to gravity. Gloves were changed, and attention was turned to the patients abdomen, where a Veress needle was placed through the umbilicus. A pneumoperitoneum was then obtained with CO2 gas. The supraumbilical area was infused with 0.25% Marcaine. An incision was made in this area, and a 8 mm trocar and sleeve was advanced through this incision. The laparoscope was then replaced, revealing intra-abdominal placement. Three additional port sites were placed, two to the left side of the patient's abdomen and one to the right. These areas was infused with 0.25% Marcaine. Each one of these areas, incisions were made, and 8 mm trocars and sleeves advanced through each one of these incisions under direct visualization. Next, the da Senia was then docked, utilizing a camera arm and two operative arms. The patient's abdomen was then surveyed with the above-noted finding. Bilateral salpingectomies were then performed. The fallopian tubes' mesosalpinx was cauterized and ligated with hemostasis noted. Next, the uteroovarian ligaments bilateral were cauterized and ligated with good hemostasis noted. The round ligaments bilaterally were cauterized and ligated with good hemostasis noted. The anterior and posterior aspects of broad ligaments were . The anterior leaf of the broad ligament was cauterized and ligated and dissected along the bladder, creating a bladder flap. The remainder of the broad and cardinal ligaments were then cauterized and ligated with good hemostasis noted. The uterine arteries were skeletonized bilaterally and were cauterized and transected with good hemostasis noted. Anterior and posterior colpotomies were made using monopolar scissors. The uterus was then brought out through the vaginal incision. The surgical sites were inspected and noted to be hemostatic. The vaginal cuff was then closed using 2-0 V-Loc system in a running fashion. Dev was then applied over the surgical field. The pneumoperitoneum was then released. Next, the cystoscopy was then performed. Utilizing a 70-degree cystoscope, it was advanced transurethrally through the bladder. The bladder was surveyed, showing normal bladder mucosa, no foreign bodies. The bilateral ureteral jets were observed. The cystoscope was then removed. The bladder was then drained. Gloves were changed. Attention was then turned to the patients abdomen, where all four port sites were closed with 4-0 Monocryl and dressed with Dermabond. The patient was then taken out of lithotomy position and was awakened from general anesthesia and taken to recovery in stable condition. Counts were correct. Elsy Feliz, my communication assistant, played a central role in the operation. She assisted with port placement, tissue retraction and identification, as well as wound closure. RICH LEBLANC MD. May 31, 2021 12:24
[2021-05-31 13:05] VITALS: BP 117/63
[2021-05-31 14:15] VITALS: BP 96/61
[2021-05-31] MEDS ORDERED: KETOROLAC 30 MG/ML 1ML VIAL IV SCH (15:00)
[2021-05-31 15:15] VITALS: BP 97/61
== END 2021-05-31 18:10 | disposition home or self-care (01) ==
LOC: M SDC 06:10 → M MS5PR 10:30 → M SDC 18:10
PROVIDERS: ATTEND Obstetrics & Gynecology
DX: N85.00 Endometrial hyperplasia, unspecified (principal); N72 Inflammatory disease of cervix uteri
CPT/HCPCS: 58571; 81025; 85027; 86850; 86900; 86901; 88307; 96374; J0131; J0690; J1100; J1885; J2250; J2405; J2765; J3010; S2900

== ENCOUNTER → 2021-06-11 | Outpatient (REF) | payer OTHER | LOC: M SFHCWAGY 17:24 | PROVIDERS: ATTEND Obstetrics & Gynecology | DX: R30.0 Dysuria (principal) ==

== ENCOUNTER → 2021-08-30 | Outpatient (CLI) | payer OTHER | LOC: M LABSMTC 09:55 | PROVIDERS: ATTEND Pediatrics | DX: Z20.822 Contact with and (suspected) exposure to COVID-19 (principal) ==

== ENCOUNTER → 2021-09-04 | Outpatient (CLI) | payer OTHER | LOC: M LABSMTC 09:39 | PROVIDERS: ATTEND Family Medicine | DX: Z11.52 Encounter for screening for COVID-19 (principal) ==

== ENCOUNTER → 2021-11-12 | Outpatient (CLI) | payer OTHER ==
[2021-11-12 11:50] LABS: HEMOGLOBIN A1c 5.1 %
[2021-11-12 12:04] LABS: FERRITIN 56 NG/ML (8-252); FREE T4 0.95 NG/DL (0.76-1.46); RHEUMATOID FACTOR QUANT < 10.0 IU/ML (<15.0); TOTAL 25(OH) VITAMIN D 35.1 NG/ML (30.0-100.0); TOTAL PROTEIN 7.9 GM/DL (6.4-8.2); VITAMIN B12 LEVEL 677 PG/ML
== END ==
LOC: M PLALAB 09:04
PROVIDERS: ATTEND Psychiatry & Neurology Neurology
DX: R20.0 Anesthesia of skin (principal); R20.2 Paresthesia of skin; E11.9 Type 2 diabetes mellitus without complications

== ENCOUNTER → 2021-11-12 | Outpatient (CLI) | payer OTHER ==
[2021-11-12 11:23] LABS: BASO % 0.8 % (0.0-1.0); EOS % 0.8 % (0.0-3.0); HEMATOCRIT 41.9 % (36.0-47.0); HEMOGLOBIN 14.1 g/dl (12.0-15.5); LYMPH # 1.3 10^3/uL (1.5-5.0); MEAN CORPUSCULAR HEMOGLOBIN 29.9 pg (27.0-33.0); MEAN CORPUSCULAR HGB CONC 33.7 g/dl (32.0-36.5); MEAN CORPUSCULAR VOLUME 88.8 fl (80.0-96.0); MONO # 0.3 10^3/uL (0.0-0.8); MONO % 6.7 % (2.0-8.0); NEUTROPHILS # 2.2 10^3/uL (1.5-8.5); NEUTROPHILS % 57.7 % (36.0-66.0); PLATELET COUNT, AUTOMATED 288 10^3/uL (150-450); RED BLOOD COUNT 4.72 10^6/uL (4.00-5.40); WHITE BLOOD COUNT 3.7 10^3/uL (4.0-10.0)
[2021-11-12 11:43] LABS: ERYTHROCYTE SEDIMENTATION RATE 8 mm/hr (0-20)
[2021-11-12 11:49] LABS: C REACTIVE PROTEIN QUANTITATIV < 0.30 MG/DL (0.00-0.30); RHEUMATOID FACTOR QUANT < 10.0 IU/ML (<15.0)
== END ==
LOC: M PLALAB 08:59
PROVIDERS: ATTEND Family Medicine
DX: I73.00 Raynaud's syndrome without gangrene (principal)

== ENCOUNTER → 2022-01-21 | Outpatient (REF) | payer OTHER ==
[2022-01-21 12:59] LABS: APPEARANCE, URINE CLEAR (CLEAR); BACTERIA, URINE AUTO NEGATIVE (NEGATIVE); BILIRUBIN, URINE AUTO NEGATIVE (NEGATIVE); BLOOD, URINE BLOOD NEGATIVE (NEGATIVE); COLOR, URINE STRAW (YELLOW); GLUCOSE, URINE (UA) AUTO NEGATIVE (NEGATIVE); KETONE, URINE AUTO NEGATIVE (NEGATIVE); LEUKOCYTE ESTERASE, URINE AUTO NEGATIVE (NEGATIVE); NITRITE, URINE AUTO NEGATIVE (NEGATIVE); PROTEIN, URINE AUTO NEGATIVE (NEGATIVE); RBC, URINE AUTO 0 /HPF (0-3); SPECIFIC GRAVITY URINE AUTO 1.003 (1.002-1.035); SQUAMOUS EPITHELIAL CELL UR AU 2 /HPF (0-6); UROBILINOGEN, URINE AUTO 0.2 mg/dL (0.0-2.0); WBC, URINE AUTO 0 /HPF (0-3)
[2022-01-21 13:02] LABS: BASO % 0.6 % (0.0-1.0); EOS % 0.8 % (0.0-3.0); HEMATOCRIT 40.5 % (36.0-47.0); HEMOGLOBIN 13.5 g/dl (12.0-15.5); LYMPH # 1.2 10^3/uL (1.5-5.0); LYMPH % 22.5 % (24.0-44.0); MEAN CORPUSCULAR HEMOGLOBIN 30.4 pg (27.0-33.0); MEAN CORPUSCULAR HGB CONC 33.3 g/dl (32.0-36.5); MEAN CORPUSCULAR VOLUME 91.2 fl (80.0-96.0); MONO # 0.4 10^3/uL (0.0-0.8); MONO % 7.5 % (2.0-8.0); NEUTROPHILS # 3.5 10^3/uL (1.5-8.5); NEUTROPHILS % 68.4 % (36.0-66.0); PLATELET COUNT, AUTOMATED 284 10^3/uL (150-450); RED BLOOD COUNT 4.44 10^6/uL (4.00-5.40); WHITE BLOOD COUNT 5.1 10^3/uL (4.0-10.0)
[2022-01-21 13:20] LABS: ERYTHROCYTE SEDIMENTATION RATE 5 mm/hr (0-20)
[2022-01-21 13:37] LABS: ALBUMIN 4.3 GM/DL (3.2-5.2); ALT/SGPT 17 U/L (12-78); BILIRUBIN,DIRECT 0.2 MG/DL (0.0-0.2); BILIRUBIN,TOTAL 0.8 MG/DL (0.2-1.0); BLOOD UREA NITROGEN 9 MG/DL (7-18); CALCIUM LEVEL 9.7 MG/DL (8.5-10.1); CARBON DIOXIDE LEVEL 26 MEQ/L (21-32); CHLORIDE LEVEL 108 MEQ/L (98-107); COMPLEMENT C3 117 MG/DL (90-180); COMPLEMENT C4 33 MG/DL (10-40); CREATININE FOR GFR 0.62 MG/DL (0.55-1.30); GLOMERULAR FILTRATION RATE > 60.0 (>58); GLUCOSE, FASTING 85 MG/DL (70-100); IRON (FE) 133 UG/DL (50-170); MAGNESIUM LEVEL 2.3 MG/DL (1.8-2.4); PHOSPHORUS LEVEL 3.2 MG/DL (2.5-4.9); POTASSIUM SERUM 4.1 MEQ/L (3.5-5.1); SODIUM LEVEL 141 MEQ/L (136-145)
[2022-01-21 13:46] LABS: TOTAL 25(OH) VITAMIN D 33.5 NG/ML (30.0-100.0)
[2022-01-21 13:47] LABS: VITAMIN B12 LEVEL 721 PG/ML (247-911)
[2022-01-21 13:48] LABS: CREATININE,RANDOM URINE < 13.0 MG/DL; TOTAL PROTEIN,RANDOM URINE < 5.0 MG/DL (0.0-12.0)
== END ==
LOC: M SFHCRHEU 10:14
PROVIDERS: ATTEND Internal Medicine
DX: R76.8 Other specified abnormal immunological findings in serum (principal)

== ENCOUNTER → 2022-01-28 | Outpatient (CLI) | payer OTHER | LOC: M WUC 09:27 | PROVIDERS: ATTEND Internal Medicine | DX: M25.40 Effusion, unspecified joint (principal) ==

== ENCOUNTER → 2022-03-06 | Outpatient (REF) | payer OTHER | LOC: M LAB REF 15:33 | PROVIDERS: ATTEND Physician Assistant | DX: Z20.828 Contact with and (suspected) exposure to other viral communicable diseases (principal); J02.9 Acute pharyngitis, unspecified ==

== ENCOUNTER → 2022-05-16 | Outpatient (CLI) | payer OTHER ==
[2022-05-16 17:59] LABS: BASO % 0.3 % (0.0-1.0); EOS % 0.5 % (0.0-3.0); HEMATOCRIT 39.2 % (36.0-47.0); HEMOGLOBIN 13.1 g/dl (12.0-15.5); LYMPH # 1.7 10^3/uL (1.5-5.0); LYMPH % 26.9 % (24.0-44.0); MEAN CORPUSCULAR HEMOGLOBIN 29.8 pg (27.0-33.0); MEAN CORPUSCULAR HGB CONC 33.4 g/dl (32.0-36.5); MEAN CORPUSCULAR VOLUME 89.3 fl (80.0-96.0); MONO # 0.5 10^3/uL (0.0-0.8); MONO % 7.7 % (2.0-8.0); NEUTROPHILS % 64.3 % (36.0-66.0); PLATELET COUNT, AUTOMATED 325 10^3/uL (150-450); RED BLOOD COUNT 4.39 10^6/uL (4.00-5.40); WHITE BLOOD COUNT 6.3 10^3/uL (4.0-10.0)
[2022-05-16 18:32] LABS: ALBUMIN 3.9 GM/DL (3.2-5.2); ALT/SGPT 26 U/L (12-78); AMYLASE 52 U/L (25-115); BILIRUBIN,TOTAL 0.4 MG/DL (0.2-1.0); BLOOD UREA NITROGEN 12 MG/DL (7-18); CALCIUM LEVEL 9.3 MG/DL (8.5-10.1); CARBON DIOXIDE LEVEL 28 MEQ/L (21-32); CHLORIDE LEVEL 105 MEQ/L (98-107); CREATININE FOR GFR 0.61 MG/DL (0.55-1.30); GLOMERULAR FILTRATION RATE > 60.0 (>58); GLUCOSE, FASTING 87 MG/DL (70-100); LIPASE 95 U/L (73-393); POTASSIUM SERUM 4.6 MEQ/L (3.5-5.1); SODIUM LEVEL 137 MEQ/L (136-145); TOTAL PROTEIN 7.7 GM/DL (6.4-8.2)
[2022-05-16 19:28] LABS: APPEARANCE, URINE MANUAL CLEAR (CLEAR); BILIRUBIN, URINE MANUAL NEGATIVE (NEGATIVE); BLOOD URINE MANUAL NEGATIVE (NEGATIVE); COLOR, URINE MANUAL LT YELLOW (YELLOW); GLUCOSE, URINE (UA) MANUAL NEGATIVE (NEGATIVE); KETONE, URINE MANUAL NEGATIVE (NEGATIVE); LEUKOCYTE ESTERASE, URINE MAN NEGATIVE (NEGATIVE); NITRITE, URINE MANUAL NEGATIVE (NEGATIVE); PROTEIN, URINE MANUAL NEGATIVE (NEGATIVE); SPECIFIC GRAVITY,URINE MANUAL 1.005 (1.002-1.035); UROBILINOGEN, URINE MANUAL NORMAL (NORMAL)
== END ==
LOC: M WUC 13:17
PROVIDERS: ATTEND Family Medicine
DX: R10.32 Left lower quadrant pain (principal)

== ENCOUNTER → 2022-05-19 | Outpatient (CLI) | payer OTHER | LOC: M PLAIMG 08:07 | PROVIDERS: ATTEND Family Medicine | DX: R10.32 Left lower quadrant pain (principal) ==

== ENCOUNTER → 2022-07-14 | Outpatient (CLI) | payer OTHER | LOC: M PLAIMG 08:37 | PROVIDERS: ATTEND Family Medicine | DX: K57.30 Diverticulosis of large intestine without perforation or abscess without bleeding (principal) ==

== ENCOUNTER → 2022-07-18 | Outpatient (REF) | payer OTHER | LOC: M SFHCRHEU 11:01 | PROVIDERS: ATTEND Internal Medicine | DX: R53.82 Chronic fatigue, unspecified (principal) ==

== ENCOUNTER → 2022-08-05 | Outpatient (CLI) | payer OTHER ==
[~2022-08-05] MED LIST changes: +AMLO1TAB24 PO; +IBUP-1114 PO; -LR 1,000 ML IV ONE; +MAPA500C PO; -ceFAZolin SOD 2 GM in IV 1 EA IV ONE
== END ==
LOC: M LABSMTC 08:57
PROVIDERS: ATTEND Anesthesiology
DX: Z01.818 Encounter for other preprocedural examination (principal); Z11.52 Encounter for screening for COVID-19

== ENCOUNTER → 2022-08-06 | Outpatient (CLI) | payer OTHER ==
[~2022-08-06] MED LIST changes: +GASTROGRAFIN SOLUTION 30ML As Ordered ONE; +ISOVUE-370 76% 100ML VIAL As Ordered ONE
== END ==
LOC: M RAD 08:10
PROVIDERS: ATTEND Surgery
DX: K57.32 Diverticulitis of large intestine without perforation or abscess without bleeding (principal)

== ENCOUNTER 2022-08-07 10:47 | Day surgery (SDC) | payer OTHER ==
[~2022-08-07] VITALS: Ht 172.7 cm; Wt 68.4 kg
[~2022-08-07 10:47] MED LIST changes: -GASTROGRAFIN SOLUTION 30ML As Ordered ONE; -ISOVUE-370 76% 100ML VIAL As Ordered ONE; +NS 1,000 ML IV ONE
[2022-08-07] MEDS ORDERED: propofoL 200 MG/20 ML VIAL As Ordered ONE (11:45)
[2022-08-07] MEDS ORDERED: LIDOCAINE 2% 100MG/5ML SDV (FOR ANES.) As Ordered ONE (11:45)
[2022-08-07 12:20] VITALS: BP 106/66
== END 2022-08-07 12:25 | disposition home or self-care (01) ==
LOC: M OPP 10:47
PROVIDERS: ATTEND Surgery
DX: K57.30 Diverticulosis of large intestine without perforation or abscess without bleeding (principal); K57.32 Diverticulitis of large intestine without perforation or abscess without bleeding; Z79.1 Long term (current) use of non-steroidal anti-inflammatories (NSAID); Z79.899 Other long term (current) drug therapy; K21.9 Gastro-esophageal reflux disease without esophagitis; I73.00 Raynaud's syndrome without gangrene

== ENCOUNTER → 2022-09-19 | Outpatient (CLI) | payer OTHER ==
[~2022-09-19] MED LIST changes: +GASTROGRAFIN SOLUTION 30ML As Ordered ONE; +ISOVUE-370 76% 100ML VIAL As Ordered ONE; -NS 1,000 ML IV ONE
== END ==
LOC: M RAD 12:57
PROVIDERS: ATTEND Surgery
DX: K57.30 Diverticulosis of large intestine without perforation or abscess without bleeding (principal)

== ENCOUNTER → 2022-10-22 | Outpatient (CLI) | payer OTHER ==
[~2022-10-22] MED LIST changes: +CVS1CAP2 PO; -GASTROGRAFIN SOLUTION 30ML As Ordered ONE; -ISOVUE-370 76% 100ML VIAL As Ordered ONE
[2022-10-22 17:11] LABS: BASO % 0.8 % (0.0-1.0); EOS % 0.6 % (0.0-3.0); HEMATOCRIT 37.3 % (36.0-47.0); HEMOGLOBIN 12.5 g/dl (12.0-15.5); LYMPH # 1.7 10^3/uL (1.5-5.0); LYMPH % 34.9 % (24.0-44.0); MEAN CORPUSCULAR HGB CONC 33.5 g/dl (32.0-36.5); MEAN CORPUSCULAR VOLUME 92.6 fl (80.0-96.0); MONO # 0.5 10^3/uL (0.0-0.8); MONO % 9.9 % (2.0-8.0); NEUTROPHILS # 2.7 10^3/uL (1.5-8.5); NEUTROPHILS % 53.8 % (36.0-66.0); PLATELET COUNT, AUTOMATED 265 10^3/uL (150-450); RED BLOOD COUNT 4.03 10^6/uL (4.00-5.40); WHITE BLOOD COUNT 4.9 10^3/uL (4.0-10.0)
[2022-10-22 17:43] LABS: ALBUMIN 3.8 G/DL (3.2-5.2); ALKALINE PHOSPHATASE 53 U/L (46-116); ALT/SGPT 16 U/L (7.0-40); AST/SGOT 14 U/L (<34); BILIRUBIN,TOTAL 0.6 MG/DL (0.3-1.2); BLOOD UREA NITROGEN 11 MG/DL (9-23); CARBON DIOXIDE LEVEL 26 MMOL/L (20-31); CHLORIDE LEVEL 104 MMOL/L (98-107); CREATININE FOR GFR 0.57 MG/DL (0.55-1.30); GLOMERULAR FILTRATION RATE > 60.0 (>58); GLUCOSE, FASTING 86 MG/DL (60-100); POTASSIUM SERUM 4.6 MMOL/L (3.5-5.1); SODIUM LEVEL 135 MMOL/L (136-145)
== END ==
LOC: M WUC 13:10
PROVIDERS: ATTEND Family Medicine
DX: Z01.818 Encounter for other preprocedural examination (principal)

== ENCOUNTER → 2022-10-30 | Outpatient (CLI) | payer OTHER | LOC: M LABSMTC 07:30 | PROVIDERS: ATTEND Anesthesiology | DX: Z01.812 Encounter for preprocedural laboratory examination (principal) ==

== ENCOUNTER 2022-11-04 11:15 | Inpatient (IN) | payer OTHER ==
[~2022-11-04] VITALS: Ht 172.7 cm; Wt 73.8 kg
[~2022-11-04 11:15] MED LIST changes: +ERTAPENEM SODIUM 1 GM in NS MINI-BAG PLUS 50 ML IV ONE
[2022-11-04] MEDS ORDERED: LIDOCAINE 2% 100MG/5ML SDV (FOR ANES.) As Ordered ONE (13:27)
[2022-11-04] MEDS ORDERED: propofoL 200 MG/20 ML VIAL As Ordered ONE ×2 (13:27→15:53)
[2022-11-04] MEDS ORDERED: ONDANSETRON 4MG 2ML VIAL As Ordered ONE (13:30)
[2022-11-04] MEDS ORDERED: KETOROLAC 60MG 2ML VIAL As Ordered ONE (13:30)
[2022-11-04] MEDS ORDERED: ROCURONIUM BROMIDE 50MG/5ML VIAL As Ordered ONE ×2 (13:30→15:53)
[2022-11-04] MEDS ORDERED: SUGAMMADEX SODIUM 500 MG/5 ML VIAL (BRIDION) As Ordered ONE (13:30)
[2022-11-04] MEDS ORDERED: fentaNYL 250 MCG/5 ML INJECTION As Ordered ONE (13:52)
[2022-11-04] MEDS ORDERED: MIDAZOLAM INJ 2MG/2ML VIAL As Ordered ONE (13:52)
[2022-11-04] MEDS ORDERED: LR 1,000 ML IV SCH ×2 (13:55→17:30)
[2022-11-04] MEDS ORDERED: BUPIVACAINE/EPIN 0.25% 30ML VIAL As Ordered ONE (14:54)
[2022-11-04] MEDS ORDERED: GLUCAGON INJ 1MG VIAL As Ordered ONE (14:55)
[2022-11-04] MEDS ORDERED: ACETAMINOPHEN 1000MG 100ML IV BAG As Ordered ONE (15:27)
[2022-11-04] MEDS ORDERED: fentaNYL 100 MCG/2 ML INJECTION As Ordered ONE (16:18)
[2022-11-04] MEDS ORDERED: ESMOLOL INJ 100MG/10ML VIAL As Ordered ONE (16:26)
[2022-11-04] MEDS ORDERED: HYDROmorphone HCL 2MG/ML 1ML VIAL As Ordered ONE (16:32)
[2022-11-04] MEDS ORDERED: METOCLOPRAMIDE INJ 10MG/2ML VIAL As Ordered ONE (16:34)
[2022-11-04] MEDS ORDERED: BUPIVACAINE HCL 0.25% 30ML VIAL As Ordered ONE ×3 (16:56→16:59)
[2022-11-04] MEDS ORDERED: BUPIVACAINE LIPOSOME/PF 1.3% 20ML VIAL (13.3MG/ML)(EXPAREL) As Ordered ONE (17:00)
[2022-11-04] MEDS ORDERED: ONDANSETRON 4MG 2ML VIAL IV PRN ×2 (17:20→17:30)
[2022-11-04] MEDS ORDERED: MORPHINE 4 MG/ML 1ML VIAL IV PRN ×2 (17:20)
[2022-11-04] MEDS ORDERED: IPRATROPIUM 0.5MG/ALBUTEROL 2.5MG INH SOL UD 3ML (DUONEB) NEB PRN (17:20)
[2022-11-04] MEDS ORDERED: fentaNYL 100 MCG/2 ML INJECTION IV PRN (17:30)
[2022-11-04] MEDS ORDERED: HYDROMORPHONE HCL 0.5 MG/ 0.5 ML SYRINGE IV PRN (17:30)
[2022-11-04] MEDS ORDERED: oxyCODONE 5MG TAB PO PRN (17:30)
[2022-11-04 18:30] VITALS: BP 122/86
[2022-11-04 19:15] VITALS: BP 105/61
[2022-11-04] MEDS ORDERED: ACET-897 PO (19:17)
[2022-11-04] MEDS ORDERED: HOME MED LIST COMPLETE! XX SCH (19:20)
[2022-11-04] MEDS: NS 1,000 ML IV SCH (19:46)
[2022-11-04 20:00] VITALS: BP 113/71
[2022-11-04 20:02] LABS: HIV SCREEN CENTAUR SOURCE NEGATIVE (NEGATIVE)
[2022-11-04] MEDS: ALVIMOPAN 12 MG CAPSULE (ENTEREG) PO SCH (20:09)
[2022-11-04] MEDS: KETOROLAC 30 MG/ML 1ML VIAL IV SCH (20:09)
[2022-11-04 21:00] VITALS: BP 114/71
[2022-11-04] MEDS: IPRATROPIUM 0.5MG/ALBUTEROL 2.5MG INH SOL UD 3ML (DUONEB) NEB SCH (21:12)
[2022-11-04 22:00] VITALS: BP 107/58
[2022-11-04 23:00] VITALS: BP 107/58
[2022-11-05] VITALS: BP 104/60
[2022-11-05] MEDS: NS 1,000 ML IV SCH (00:52)
[2022-11-05] MEDS: MORPHINE 2 MG/ML 1ML VIAL IV PRN ×3 (00:54→12:21)
[2022-11-05] MEDS: IPRATROPIUM 0.5MG/ALBUTEROL 2.5MG INH SOL UD 3ML (DUONEB) NEB SCH ×2 (02:38→08:00)
[2022-11-05] MEDS: KETOROLAC 30 MG/ML 1ML VIAL IV SCH ×4 (02:39→20:52)
[2022-11-05 04:00] VITALS: BP 106/59
[2022-11-05 06:13] LABS: HEMATOCRIT 33.8 % (36.0-47.0); HEMOGLOBIN 11.4 g/dl (12.0-15.5); MEAN CORPUSCULAR HEMOGLOBIN 30.8 pg (27.0-33.0); MEAN CORPUSCULAR HGB CONC 33.7 g/dl (32.0-36.5); MEAN CORPUSCULAR VOLUME 91.4 fl (80.0-96.0); PLATELET COUNT, AUTOMATED 248 10^3/uL (150-450); WHITE BLOOD COUNT 12.7 10^3/uL (4.0-10.0)
[2022-11-05 06:49] LABS: BLOOD UREA NITROGEN 10 MG/DL (9-23); CALCIUM LEVEL 8.3 MG/DL (8.5-10.1); CARBON DIOXIDE LEVEL 21 MMOL/L (20-31); CHLORIDE LEVEL 107 MMOL/L (98-107); CREATININE FOR GFR 0.52 MG/DL (0.55-1.30); GLOMERULAR FILTRATION RATE > 60.0 (>58); GLUCOSE, FASTING 87 MG/DL (60-100); POTASSIUM SERUM 4.5 MMOL/L (3.5-5.1); SODIUM LEVEL 137 MMOL/L (136-145)
[2022-11-05] MEDS: ALVIMOPAN 12 MG CAPSULE (ENTEREG) PO SCH ×2 (08:05→20:52)
[2022-11-05] MEDS: PANTOPRAZOLE 40MG VIAL IV SCH (08:05)
[2022-11-05] MEDS ORDERED: ERTAPENEM SODIUM 1 GM in NS MINI-BAG PLUS 50 ML IV ONE (12:00)
[2022-11-05 12:30] VITALS: BP 141/98
[2022-11-05 12:31] LABS: HEPATITIS B SURFACE ANTIGEN NEGATIVE (NEGATIVE)
[2022-11-05 16:00] VITALS: BP 116/70
[2022-11-05 20:00] VITALS: BP 112/69
[2022-11-06] VITALS: BP 111/67
[2022-11-06 02:00] VITALS: BP 108/71
[2022-11-06] MEDS: KETOROLAC 30 MG/ML 1ML VIAL IV SCH ×4 (02:05→21:01)
[2022-11-06 06:00] VITALS: BP 109/72
[2022-11-06 07:48] LABS: HEMATOCRIT 33.5 % (36.0-47.0); HEMOGLOBIN 11.1 g/dl (12.0-15.5); MEAN CORPUSCULAR HEMOGLOBIN 30.9 pg (27.0-33.0); MEAN CORPUSCULAR HGB CONC 33.1 g/dl (32.0-36.5); MEAN CORPUSCULAR VOLUME 93.3 fl (80.0-96.0); PLATELET COUNT, AUTOMATED 198 10^3/uL (150-450); RED BLOOD COUNT 3.59 10^6/uL (4.00-5.40); WHITE BLOOD COUNT 4.4 10^3/uL (4.0-10.0)
[2022-11-06] MEDS: ALVIMOPAN 12 MG CAPSULE (ENTEREG) PO SCH ×2 (08:09→21:01)
[2022-11-06] MEDS: PANTOPRAZOLE 40MG VIAL IV SCH (08:09)
[2022-11-06 08:57] LABS: BLOOD UREA NITROGEN 8 MG/DL (9-23); CALCIUM LEVEL 8.5 MG/DL (8.5-10.1); CARBON DIOXIDE LEVEL 27 MMOL/L (20-31); CHLORIDE LEVEL 107 MMOL/L (98-107); CREATININE FOR GFR 0.49 MG/DL (0.55-1.30); GLOMERULAR FILTRATION RATE > 60.0 (>58); GLUCOSE, FASTING 84 MG/DL (60-100); POTASSIUM SERUM 4.3 MMOL/L (3.5-5.1); SODIUM LEVEL 139 MMOL/L (136-145)
[2022-11-06 14:00] VITALS: BP 110/72
[2022-11-06 20:00] VITALS: BP 113/76
[2022-11-07] MEDS: KETOROLAC 30 MG/ML 1ML VIAL IV SCH ×2 (01:54→08:51)
[2022-11-07 02:00] VITALS: BP 107/73
[2022-11-07 05:43] VITALS: BP 115/76
[2022-11-07 05:47] LABS: HEMATOCRIT 33.4 % (36.0-47.0); MEAN CORPUSCULAR HEMOGLOBIN 30.2 pg (27.0-33.0); MEAN CORPUSCULAR HGB CONC 32.9 g/dl (32.0-36.5); MEAN CORPUSCULAR VOLUME 91.8 fl (80.0-96.0); PLATELET COUNT, AUTOMATED 191 10^3/uL (150-450); RED BLOOD COUNT 3.64 10^6/uL (4.00-5.40); WHITE BLOOD COUNT 3.8 10^3/uL (4.0-10.0)
[2022-11-07 06:16] LABS: BLOOD UREA NITROGEN 7 MG/DL (9-23); CALCIUM LEVEL 8.7 MG/DL (8.5-10.1); CARBON DIOXIDE LEVEL 26 MMOL/L (20-31); CHLORIDE LEVEL 108 MMOL/L (98-107); CREATININE FOR GFR 0.48 MG/DL (0.55-1.30); GLOMERULAR FILTRATION RATE > 60.0 (>58); GLUCOSE, FASTING 87 MG/DL (60-100); POTASSIUM SERUM 4.2 MMOL/L (3.5-5.1); SODIUM LEVEL 141 MMOL/L (136-145)
[2022-11-07] MEDS: PANTOPRAZOLE 40MG VIAL IV SCH (08:50)
[2022-11-07] MEDS: ALVIMOPAN 12 MG CAPSULE (ENTEREG) PO SCH (08:50)
[2022-11-07 09:53] VITALS: BP 128/82
== END 2022-11-07 10:17 | disposition home or self-care (01) | DRG 331 ==
LOC: M MSPAV 18:20
PROVIDERS: ADMIT Surgery; ATTEND Surgery
PROC: 0DBN4ZZ Excision of Sigmoid Colon, Percutaneous Endoscopic Approach (ICD-10-PCS; principal; 2022-11-05)
DX: K57.32 Diverticulitis of large intestine without perforation or abscess without bleeding (principal); F41.9 Anxiety disorder, unspecified; I73.00 Raynaud's syndrome without gangrene; Z79.899 Other long term (current) drug therapy

== ENCOUNTER → 2024-02-02 | Outpatient (CLI) | payer OTHER ==
[~2024-02-02] MED LIST changes: +ACET-897 PO; -ERTAPENEM SODIUM 1 GM in NS MINI-BAG PLUS 50 ML IV ONE
== END ==
LOC: M WHC 11:25
PROVIDERS: ATTEND Family Medicine
DX: Z12.31 Encounter for screening mammogram for malignant neoplasm of breast (principal)

== ENCOUNTER → 2024-02-24 | Outpatient (CLI) | payer OTHER | LOC: M WHC 14:35 | PROVIDERS: ATTEND Family Medicine | DX: R92.2 Inconclusive mammogram (principal) ==

== ENCOUNTER → 2024-09-06 | Outpatient (CLI) | payer OTHER | LOC: M WHC 07:53 | PROVIDERS: ATTEND Family Medicine | DX: R92.30 Dense breasts, unspecified (principal) | CPT/HCPCS: 76642; 77065; G0279 ==

== ENCOUNTER → 2024-10-06 | Outpatient (CLI) | payer OTHER | LOC: M RAD 07:26 | PROVIDERS: ATTEND Family Medicine | DX: R10.32 Left lower quadrant pain (principal) ==

== ENCOUNTER → 2024-12-20 | Outpatient (REF) | payer OTHER ==
[2024-12-20 15:31] LABS: BASO % 0.5 % (0.0-1.0); EOS % 0.8 % (0.0-3.0); HEMATOCRIT 42.5 % (36.0-47.0); HEMOGLOBIN 14.2 g/dl (12.0-15.5); LYMPH # 1.3 10^3/uL (1.5-5.0); LYMPH % 34.6 % (24.0-44.0); MEAN CORPUSCULAR HEMOGLOBIN 30.9 pg (27.0-33.0); MEAN CORPUSCULAR HGB CONC 33.4 g/dl (32.0-36.5); MEAN CORPUSCULAR VOLUME 92.4 fl (80.0-96.0); MONO # 0.3 10^3/uL (0.0-0.8); MONO % 7.8 % (2.0-8.0); NEUTROPHILS # 2.2 10^3/uL (1.5-8.5); NEUTROPHILS % 56.3 % (36.0-66.0); PLATELET COUNT, AUTOMATED 302 10^3/uL (150-450); WHITE BLOOD COUNT 3.8 10^3/uL (4.0-10.0)
[2024-12-20 15:32] LABS: C REACTIVE PROTEIN QUANTITATIV < 0.50 MG/DL (<1.0); COMPLEMENT C3 132.2 MG/DL (90.0-170.0); COMPLEMENT C4 29.7 MG/DL (12-36)
[2024-12-20 15:33] LABS: ALBUMIN 4.4 G/DL (3.2-5.2); ALKALINE PHOSPHATASE 52 U/L (35-104); ALT/SGPT 24 U/L (7.0-40); AST/SGOT 18 U/L (<34); BILIRUBIN,DIRECT 0.2 MG/DL (<0.4); BILIRUBIN,TOTAL 0.6 MG/DL (0.3-1.2); BLOOD UREA NITROGEN 11 MG/DL (9-23); CALCIUM LEVEL 9.5 MG/DL (8.5-10.1); CARBON DIOXIDE LEVEL 26 MMOL/L (20-31); CHLORIDE LEVEL 104 MMOL/L (98-107); CREATININE FOR GFR 0.51 MG/DL (0.55-1.30); GLOMERULAR FILTRATION RATE > 90.0 (>58); GLUCOSE, FASTING 83 MG/DL (60-100); POTASSIUM SERUM 4.1 MMOL/L (3.5-5.1); SODIUM LEVEL 140 MMOL/L (136-145); TOTAL 25(OH) VITAMIN D 28.9 NG/ML (20.0-100.0)
[2024-12-20 15:38] LABS: APPEARANCE, URINE CLEAR (CLEAR); BACTERIA, URINE AUTO NEGATIVE (NEGATIVE); BILIRUBIN, URINE AUTO NEGATIVE (NEGATIVE); BLOOD, URINE BLOOD NEGATIVE (NEGATIVE); COLOR, URINE YELLOW (YELLOW); GLUCOSE, URINE (UA) AUTO NEGATIVE (NEGATIVE); KETONE, URINE AUTO 1+ mg/dL (NEGATIVE); LEUKOCYTE ESTERASE, URINE AUTO NEGATIVE (NEGATIVE); MUCUS, URINE SMALL (NEGATIVE); NITRITE, URINE AUTO NEGATIVE (NEGATIVE); PROTEIN, URINE AUTO NEGATIVE (NEGATIVE); RBC, URINE AUTO 3 /HPF (0-3); SPECIFIC GRAVITY URINE AUTO 1.023 (1.002-1.035); SQUAMOUS EPITHELIAL CELL UR AU 0 /HPF (0-6); UROBILINOGEN, URINE AUTO 0.2 mg/dL (0.0-2.0); WBC, URINE AUTO 0 /HPF (0-3)
[2024-12-20 15:48] LABS: ERYTHROCYTE SEDIMENTATION RATE 16 mm/hr (0-20)
[2024-12-20 16:18] LABS: CREATININE,RANDOM URINE 128.2 MG/DL
== END ==
LOC: M SFHCRHEU 11:19
PROVIDERS: ATTEND Internal Medicine
DX: R76.8 Other specified abnormal immunological findings in serum (principal); M35.9 Systemic involvement of connective tissue, unspecified; R53.82 Chronic fatigue, unspecified